=== PATIENT | male | born 1985 | race Caucasian/White ===

== ENCOUNTER 2021-01-07 15:46 | Outpatient (CLI) | payer OTHER, SELFPAY ==
--- NOTE | ~2021-01-07 | XR_ITS ---
XR sacroiliac joints min 3V 01/07/2021 16:31 Indication: Low back and pelvic pain. Sacroiliitis. Procedure: 3 views of the sacroiliac joints. Comparison: No prior studies for comparison. Findings: Sacroiliac joints are symmetric without significant degenerative change, ankylosis or erosi on. Sacral foramen are symmetric. Surrounding pelvis and lower lumbar spine are unremarkable. No sign ificant soft tissue abnormality. Impression: 1: No significant abnormality of the sacroiliac joints. Reviewed, dictated and finalized at location A. Impression: 1: No significant abnormality of the sacroiliac joints.
--- NOTE | ~2021-01-07 | XR_ITS ---
EXAMINATION: XR hip RT min 2V DATE: 01/07/2021 16:31 INDICATION: Right hip pain. TECHNIQUE: 2 views of right hip were obtained. COMPARISON: None. FINDINGS: Bone alignment is normal. No fracture. There is decreased femoral head/neck offset, which m ay be seen with femoral acetabular impingement. There is mild right hip osteoarthritis. IMPRESSION: 1. Mild right hip osteoarthritis. Reviewed, dictated and finalized at location B.
== END 2021-01-07 15:47 ==
PROVIDERS: PCP Family Medicine; Visit Provider Physician Assistant
DX: M16.11 Unilateral primary osteoarthritis, right hip (principal)
CPT/HCPCS: 72202; 73502